=== PATIENT | female | born 1940 | race Caucasian/White ===

== ENCOUNTER → 2017-03-04 | Outpatient (CLI) | payer MEDICARE, OTHER ==
--- NOTE | ~2017-03-04 | NDGEN ---
PATIENT'S NAME: BERENICE CHOUDHURY [facility] AGE: 76 Y [address] ROOM: [place] [address] LOCATION: [facility] ADMIT DATE: 03/04/2017 [facility]ostics DISCHARGE DATE: FAMILY PHYSICIAN: Geovani Tarango MD ATTENDING PHYSICIAN: Geovani Tarango DATE OF PROCEDURE: 03/04/2017 STUDIES: Nerve conduction studies of the bilateral lower extremities and an EMG of the left lower extremity. The patient had this study done on 03/04/2017. DESCRIPTION: This is a 76-year-old female, who actually looks younger than her stated age. She is quite active. She has had many years of complaints of pain through her legs for which she complains about an aching, often spasms of the lower extremities. There was no loss of sensation at the base of the feet or into the feet and up the lower legs in a pattern that is not suggestive of a typical neuropathy. She has excellent power into her lower extremities including excellent dorsiflexion, plantar flexion, eversion, and inversion of the feet. Reflexes are intact. The motor nerve conduction studies and sensory nerve conduction studies were all done and were all within normal limits. She had normal motor onset latencies, amplitudes, and nerve conduction velocities. The sensory nerve conduction studies were also well within normal limits and usually is not present in a patient of her age. Next, a needle was placed into the left lower extremity to look for any evidence to support a radiculopathy. The nerve conduction studies did show some slightly large compound motor action potentials, but they are probably within normal limits. There was no evidence of any acute impingement of the femoral or into the sciatic root as there is no evidence of fibrillation potentials or positive sharp waves. Otherwise recruitment of motor unit action potentials were all within normal limits. IMPRESSION: There were normal nerve conduction studies throughout with normal amplitudes, durations of compound motor action potentials and sensory nerve action potentials and normal nerve conduction velocities. This would not be consistent at all with a neuropathy of the lower extremities. The combination of cramping and issues with restless legs should be potentially looked at more closer, perhaps with an alternate medication for restless legs syndrome. She PATIENT'S NAME: BERENICE CHOUDHURY [facility] AGE: 76 Y [address] ROOM: [place], [place] [id number] LOCATION: [facility] ADMIT DATE: 03/04/2017 Neurodiagnostics DISCHARGE DATE: FAMILY PHYSICIAN: Geovani Tarango MD ATTENDING PHYSICIAN: Geovani Tarango has tried Neurontin and Lyrica in the past for generalized pain, but this has not helped her situation currently. MD HÉCTOR BUNDY/dinah /[id number] dtt: 03/20/17 1730 , CHACORTA LIZARRAGA dtd: 03/04/17 1910
== END | disposition disaster alternative care site (69) ==
LOC: GNEU 14:26
DX: M79.605 Pain in left leg (principal); M79.604 Pain in right leg; R20.2 Paresthesia of skin